=== PATIENT | male | born 1955 | race African-American/Black ===

== ENCOUNTER 2024-11-06 17:12 | Emergency (ER) | payer BC, MEDICARE ==
[~2024-11-06] VITALS: Ht 177.8 cm; Wt 113.0 kg
[~2024-11-06 17:12] MED LIST: APIX5TAB MT; FURO-151 MT; KEPP500 MT; METH4TAB95 MT; SUCR1TAB30 MT
[2024-11-06 17:17] VITALS: O2SAT 80
[2024-11-06] MEDS ORDERED: NOREPINEPHRINE 8MG/250ML PMX 250 ML IV ONE (17:26)
[2024-11-06 18:17] VITALS: BP 0/0; PULSE 0; RESP 0; O2SAT 0
== END 2024-11-06 19:28 ==
LOC: ER 17:12
DX: I46.9 Cardiac arrest, cause unspecified (principal); I11.0 Hypertensive heart disease with heart failure; I50.9 Heart failure, unspecified; Z79.899 Other long term (current) drug therapy
CPT/HCPCS: 99291; 92950; 31500; 82962; J3490